=== PATIENT | male | born 1965 | race Caucasian/White ===

== ENCOUNTER 2017-03-14 23:30 | Emergency (ER) | payer MEDICAID ==
[2015-05-01 20:45] VITALS: BMI 19.1
[~2017-03-14 23:30] MED LIST: PROTONIX40 MG PO
== END 2017-03-15 00:55 | disposition home or self-care (01) ==
LOC: D.ER 23:30
DX: M79.604 Pain in right leg (principal); S50.01XA Contusion of right elbow, initial encounter; S80.01XA Contusion of right knee, initial encounter; Y09 Assault by unspecified means